=== PATIENT | male | born 1970 | race Caucasian/White ===

== ENCOUNTER 2018-04-05 07:56 | Emergency (ER) | payer MEDICAID ==
[~2018-04-05] VITALS: Ht 170.2 cm; Wt 74.7 kg
[~2018-04-05 07:56] MED LIST: ACET1TAB40 PO; ARIP10TA12 PO; BACTDS PO; HYDR-3498 PO; IBUP-1542 PO; NEOM28OI2 TP
[2018-04-05 07:59] VITALS: BP 121/82; PULSE 70; RESP 20; Ht 170.2 cm; Wt 74.7 kg
[2018-04-05] MEDS ORDERED: ELIM TOP (08:24)
--- NOTE | 2018-04-05 08:37 | ERD ---
ER Documentation Chief Complaint Chief Complaint Complains of a rash possible scabies infection HPI Patient is a 47-year-old male who Presents to the ER for concerns of a rash. Patient is brought in by his friend who states that she has scabies.. Patient has been living with his friend and they live in their car. Patient states that the rash is itchy. Patient denies any fevers or chills. Patient denies any new creams, lotions, medications or foods. ROS All systems reviewed and are negative except as per history of present illness. Medications Home Meds Active Scripts Permethrin* (Elimite*) 5% Cr, 1 APPLIC TOP ONCE, #2 TUB Use as drirected today. If no relief, use again 2 weeks Prov:DENISSE HENAO PA-C 04/05/18 Acetaminophen with Codeine (Acetaminophen-Cod #3 Tablet) 1 Each Tablet, 1 TAB PO Q6H, #12 TAB Prov:SUE MENDIOLA MD 12/15/15 Neomycin Stewart/Bacitrac Zn/Poly (Triple Antibiotic Ointment) 28 Gm Oint...g., 28 GM TP TID for 10 Days Prov:SUE MENDIOLA MD 12/15/15 Sulfamethoxazole-Trimethoprim* (Bactrim* DS) 800-160 Mg Tab, 1 TAB PO BID for 7 Days, TAB Prov:SUE MENDIOLA MD 12/15/15 Hydrocodone Bit-Acetaminophen* ([place]*) 5-325 Mg Tab, 1 TAB PO Q6 PRN for PAIN, #7 TAB Prov:ROSSANA ROQUE NP 05/08/15 Ibuprofen* (Motrin*) 600 Mg Tab, 600 MG PO Q6H PRN for PAIN AND OR ELEVATED TEMP, #30 TAB Prov:ROSSANA ROQUE NP 05/08/15 Hydrocodone Bit-Acetaminophen* ([place]*) 5-325 Mg Tab, 1 TAB PO Q6 PRN for PAIN, #20 TAB Prov:ROSSANA ROQUE NP 04/09/15 Ibuprofen* (Ibuprofen*) 600 Mg Tablet, 600 MG PO Q6H PRN for pa, #30 TAB Prov:ROSSANA ROQUE NP 04/09/15 Reported Medications Aripiprazole* (Abilify*) Unknown Strength Tablet, PO DAILY, #30 TAB 04/09/15 Allergies Allergies: Coded Allergies: No Known Allergy (Unverified , 04/09/15) PMhx/Soc History of Surgery: No Anesthesia Reaction: No Hx Neurological Disorder: No Hx Respiratory Disorders: No Hx Cardiac Disorders: No Hx Psychiatric Problems: Yes (bipolar disorder) Hx Miscellaneous Medical Probl: No (Rt foot infection ) Hx Alcohol Use: No Hx Substance Use: No Hx Tobacco Use: Yes Smoking Status: Current every day smoker FmHx Family History: No diabetes Physical Exam Vitals Vital Signs Date Temp Pulse Resp B/P (MAP) Pulse Ox O2 O2 Flow FiO2 Time Delivery Rate 04/05/18 97.5 70 20 121/82 100 07:59 (95) Physical Exam GENERAL: Well-developed, well-nourishedmale. Appears in no acute distress. Speaking in full sentences. HEAD: Normocephalic, atraumatic. EYES: Pupils are equally reactive bilaterally. EOMs grossly intact. No conjunctival erythema. ENT: No lip swelling. Tolerating secretions well. NECK: Supple. No meningismus. Normal range of motion of the neck. LUNG: No respiratory distress HEART: Regular rate and rhythm. No murmurs, rubs or gallops. EXTREMITIES: Equal pulses bilaterally. No peripheral clubbing, cyanosis or edema. No unilateral leg swelling. NEUROLOGIC: Alert and oriented. Moving all four extremities without any difficulty. Normal speech. Steady gait. SKIN: Dry excoriated skin noted on bilateral hands with burning noted in the webspaces. Procedures/MDM MEDICAL DECISION MAKING: This is a 40-year-old male presents ER for concerns of recurrent scabies. Patient brings in friend who also has similar symptoms. Vital signs were r eviewed. Patient was afebrile. Patient will be treated with course of permethrin cream and advised to repeat cream in 1 week if symptoms persist. Low suspicion for necrotizing fasciitis, sepsis, gangrene, Sonny-Memo syndrome, toxic epidural necrolysis, abscess, cellulitis, herpes zoster, viral exanthem, anaphylaxis, allergic reaction, allergic contact dermatitis, irritant contact dermatitis, impetigo, dermatitis. She was nontoxic, non-ill appearing prior to discharge. PRESCRIPTIONS: Permethrin cream DISCHARGE: At this time, patient is stable for discharge and outpatient management. I have advised the patient to avoid any new products, creams or possible allergens. I have advised the patient to avoid scratching the lesions. I have instructed the patient to follow-up with his/her primary care physician in 1-2 days. If symptoms persist, patient may need to see a stringed instrument tuner for further examinations and testing. I have instructed the patient to promptly return to the ER at any time for any new or worsening symptoms including increased pain, fever, redness, swelling, warmth, difficulty breathing or vomiting. The patient and/or family expressed understanding of and agreement with this plan. All questions were answered. Home care instructions were provided. Disclaimer: Inadvertent spelling and grammatical errors are likely due to EHR/dictation software use and do not reflect on the overall quality of patient care. Also, please note that the electronic time recorded on this note does not necessarily reflect the actual time of the patient encounter. Departure Diagnosis: Primary Impression: Rash Condition: Stable Patient Instructions: Scabies, Permethrin Topical lotion Referrals: [facility] YOU HAVE RECEIVED A MEDICAL SCREENING EXAM AND THE RESULTS INDICATE THAT YOU DO NOT HAVE A CONDITION THAT REQUIRES URGENT TREATMENT IN THE EMERGENCY DEPARTMENT. FURTHER EVALUATION AND TREATMENT OF YOUR CONDITION CAN WAIT UNTIL YOU ARE SEEN IN YOUR DOCTORS OFFICE WITHIN THE NEXT 1-2 DAYS. IT IS YOUR RESPONSIBILITY TO MAKE AN APPOINTMENT FOR FOLOW-UP CARE. IF YOU HAVE A PRIMARY DOCTOR --you should call your primary doctor and schedule an appointment IF YOU DO NOT HAVE A PRIMARY DOCTOR YOU CAN CALL OUR PHYSICIAN REFERRAL HOTLINE AT IF YOU CAN NOT AFFORD TO SEE A PHYSICIAN YOU CAN CHOSE FROM THE FOLLOWING [facility] CL[facility] [address] [facility] [address] [facility] [address] [facility] [address] [facility] [address] [facility]. [address] [facility] [facility] YOU HAVE RECEIVED A MEDICAL SCREENING EXAM AND THE RESULTS INDICATE THAT YOU DO NOT HAVE A CONDITION THAT REQUIRES URGENT TREATMENT IN THE EMERGENCY DEPARTMENT. FURTHER EVALUATION AND TREATMENT OF YOUR CONDITION CAN WAIT UNTIL YOU ARE SEEN IN YOUR DOCTORS OFFICE WITHIN THE NEXT 1-2 DAYS. IT IS YOUR RESPONSIBILITY TO MAKE AN APPOINTMENT FOR FOLOW-UP CARE. IF YOU HAVE A PRIMARY DOCTOR --you should call your primary doctor and schedule and appointment IF YOU DO NOT HAVE A PRIMARY DOCTOR YOU CAN CALL OUR PHYSICIAN REFERRAL HOTLINE AT . IF YOU CAN NOT AFFORD TO SEE A PHYSICIAN YOU CAN CHOSE FROM THE FOLLOWING [facility] INSTITUTIONS: [facility] [address] [place] [address] [facility] [address] [place] [address] [facility] + [facility] [address] [place] [address] Additional Instructions: Call your primary care doctor TOMORROW for an appointment during the next 1-2 days.See the doctor sooner or return here if your condition worsens before your appointment time. DENISSE HENAO PA-C Apr 05, 2018 08:37
== END 2018-04-05 08:42 | disposition home or self-care (01) ==
LOC: FTE 07:56
DX: R21 Rash and other nonspecific skin eruption (principal); F17.210 Nicotine dependence, cigarettes, uncomplicated
CPT/HCPCS: 99282